=== PATIENT | male | born 1960 | race Caucasian/White ===

== ENCOUNTER 2021-10-08 09:28 | Observation (INO) ==
[2021-10-08] MEDS ORDERED: Naloxone 0.4 MG/ML INJ IVP PRN (11:57)
[2021-10-08] MEDS ORDERED: Ondansetron 4 MG/2 ML VIAL IVP PRN (11:57)
[2021-10-08] MEDS ORDERED: D5% in Water 1,000 ML IVC PRN (12:01)
[2021-10-08] MEDS ORDERED: Dextrose Gel 15 GM/37.5 ML TUBE PO PRN ×2 (12:01)
[2021-10-08] MEDS ORDERED: *HR* Dextrose 50 % in Water (Syg) 50 ML SYRINGE IVP PRN (12:01)
[2021-10-08] MEDS: 0.9 % Sodium Chloride 1,000 ML IVC SCH ×2 (12:55→21:36)
[2021-10-08] MEDS: Pantoprazole 40 MG VIAL IVP SCH ×2 (12:56→18:17)
[2021-10-08 13:12] LABS: Basophils # 0.1 K/mcL (0.0-0.2); Basophils % 0.6 %; Eosinophils # 0.2 K/mcL (0.0-0.6); Eosinophils % 1.8 %; Hematocrit 22.4 % (37.5-50.1); Hemoglobin 7.5 g/dL (12.9-16.9); Immature Granulocytes % 0.7 % (0-4); Lymphocytes # 1.6 K/mcL (0.6-4.6); Lymphocytes % 16.6 %; Mean Corpuscular HGB Conc 33.5 g/dL (31.6-35.5); Mean Corpuscular Hemoglobin 32.9 pg (28.0-33.3); Mean Corpuscular Volume 98.2 fL (83.0-100.0); Mean Platelet Volume 10.2 fL (9.4-12.4); Monocytes # 0.9 K/mcL (0.0-1.3); Monocytes % 8.8 %; Nucleated Red Blood Cells 0.2 /100 WBC (0); Platelet Count 218 K/mcL (140-400); Red Blood Count 2.28 M/mcL (4.19-5.50); Red Cell Distribution Width 15.1 % (11.5-14.5); Segmented Neutrophils % 71.5 %; White Blood Count 9.8 K/mcL (4.3-11.1)
[2021-10-08 13:34] LABS: Estimated Average Glucose 126 mg/dl
[2021-10-08 14:45] LABS: % Iron Saturation 9 % (20-55); Iron 31 mcg/dL (65-175); Transferrin 243 mg/dL (203-362)
[2021-10-08] MEDS ORDERED: SODIUM CHLORIDE/NAHCO3/KCL/PEG 4,000 ML SOLN.RECON PO ONE (17:00)
[2021-10-08] MEDS: Insulin LISPRO 300 UNITS/3 ML VIAL SUBQ SCH ×2 (18:14→21:08)
[2021-10-09] MEDS: Pantoprazole 40 MG VIAL IVP SCH ×2 (06:02→17:52)
[2021-10-09 06:26] LABS: Basophils # 0.1 K/mcL (0.0-0.2); Basophils % 0.7 %; Eosinophils # 0.1 K/mcL (0.0-0.6); Eosinophils % 1.5 %; Hematocrit 21.1 % (37.5-50.1); Hemoglobin 6.8 g/dL (12.9-16.9); Immature Granulocytes % 0.7 % (0-4); Lymphocytes # 1.3 K/mcL (0.6-4.6); Lymphocytes % 17.4 %; Mean Corpuscular HGB Conc 32.2 g/dL (31.6-35.5); Mean Corpuscular Hemoglobin 31.9 pg (28.0-33.3); Mean Corpuscular Volume 99.1 fL (83.0-100.0); Mean Platelet Volume 9.9 fL (9.4-12.4); Monocytes # 0.6 K/mcL (0.0-1.3); Monocytes % 8.3 %; Neutrophils # 5.3 K/mcL (1.6-8.9); Nucleated Red Blood Cells 0.4 /100 WBC (0); Platelet Count 209 K/mcL (140-400); Red Blood Count 2.13 M/mcL (4.19-5.50); Segmented Neutrophils % 71.4 %; White Blood Count 7.5 K/mcL (4.3-11.1)
[2021-10-09 06:59] LABS: BUN/Creatinine Ratio 16 (6-26); Blood Urea Nitrogen 12 mg/dL (8-23); Calcium 7.1 mg/dL (8.6-10.3); Carbon Dioxide 24 mEq/L (23-29); Chloride 111 mEq/L (98-107); Glucose 107 mg/dL (70-105); Magnesium 1.4 mg/dL (1.6-2.6); Osmolality,Calculated 288 (280-300); Phosphorous 2.9 mg/dL (2.7-4.5); Potassium 3.5 mEq/L (3.5-5.1); Sodium 139 mEq/L (136-145); eGFR For African Americans > 60 (> 60); eGFR For Non-African Americans > 60 (> 60)
[2021-10-09] MEDS: Insulin LISPRO 300 UNITS/3 ML VIAL SUBQ SCH ×4 (07:03→21:29)
[2021-10-09] MEDS: Levothyroxine Sodium 100 MCG VIAL IVP SCH (08:22)
[2021-10-09] MEDS: 0.9 % Sodium Chloride 1,000 ML IVC SCH ×2 (08:23→18:45)
[2021-10-09] MEDS ORDERED: 0.9 % Sodium Chloride 250 ML ONE (09:30)
[2021-10-09] MEDS ORDERED: Lidocaine -MPF 2% 5 ML VIAL ONE ×2 (11:06→11:08)
[2021-10-09] MEDS ORDERED: *HR* Propofol 200 MG/20 ML VIAL IVP ONE (11:07)
[2021-10-10] MEDS: 0.9 % Sodium Chloride 1,000 ML IVC SCH (03:31)
[2021-10-10] MEDS: Pantoprazole 40 MG VIAL IVP SCH (05:29)
[2021-10-10 08:13] LABS: Hemoglobin 7.2 g/dL (12.9-16.9); Mean Corpuscular HGB Conc 32.7 g/dL (31.6-35.5); Mean Corpuscular Hemoglobin 31.6 pg (28.0-33.3); Mean Corpuscular Volume 96.5 fL (83.0-100.0); Mean Platelet Volume 9.6 fL (9.4-12.4); Platelet Count 205 K/mcL (140-400); Red Blood Count 2.28 M/mcL (4.19-5.50); Red Cell Distribution Width 15.7 % (11.5-14.5); White Blood Count 6.2 K/mcL (4.3-11.1)
[2021-10-10] MEDS: Insulin LISPRO 300 UNITS/3 ML VIAL SUBQ SCH ×2 (08:37→12:07)
[2021-10-10] MEDS: Levothyroxine Sodium 100 MCG VIAL IVP SCH (10:32)
[2021-10-10 11:41] VITALS: BP 116/76; PULSE 76; TEMP 97.6; O2SAT 95
[2021-10-10] MEDS ORDERED: FLU Vac QV 21-22 (6Month+)/PF 0.5 ML SYRINGE IM ONE (14:36)
== END 2021-10-10 15:00 | disposition home or self-care (01) ==
LOC: 3ANU → SUATTDRO 11:23
PROVIDERS: ADMIT Family Medicine; ATTEND Student in an Organized Health Care Education/Training Program